=== PATIENT | female | born 1940 | race Caucasian/White ===

== ENCOUNTER → 2016-09-13 | Outpatient (CLI) | payer BC ==
[~2016-09-13] MED LIST: AMOX875T PO; ASCO100061 PO; ASPI81TA28 PO; ATEN50TA8 PO; ATOR-22 PO; CALC-20 PO; FLUT0.0529 NAE; GLUC250C PO; HYDR-5688 PO; MULT-506 PO; OMEG10007 PO
[2016-09-13 14:56] LABS: BLOOD UREA NITROGEN 16 mg/dl (7-18); BUN/CREATININE RATIO 19.7 (10-20); CALCIUM 9.2 mg/dl (8.5-10.1); CARBON DIOXIDE 27 mmol/L (21-32); CREATININE 0.79 mg/dl (0.60-1.20); GLUCOSE 87 mg/dl (70-99)
[2016-09-13 15:46] LABS: CHLORIDE 109 mmol/L (98-107); POTASSIUM 4.1 mmol/L (3.5-5.1); SODIUM 145 mmol/L (136-145)
== END | disposition home or self-care (01) ==
LOC: C.LAB1850 12:12
PROVIDERS: ATTEND Internal Medicine
DX: M81.0 Age-related osteoporosis without current pathological fracture (principal)

== ENCOUNTER 2016-09-26 06:51 | Emergency (ER) | payer BC ==
[~2016-09-26] VITALS: Ht 167.6 cm; Wt 64.8 kg
[~2016-09-26 06:51] MED LIST changes: -AMOX875T PO; -HYDR-5688 PO
[2016-09-26 06:56] VITALS: TEMP 36.8; Ht 167.6 cm; Wt 64.8 kg
[2016-09-26] MEDS ORDERED: MoRPHine SULFATE 4 MG/ML 1 ML CARP\\VIAL IV STA (08:23)
[2016-09-26] MEDS ORDERED: ONDANSETRON INJ 2 MG/ML 2 ML VIAL IV ONE (08:30)
[2016-09-26 08:46] LABS: BASO % 0.3 %; BASO ABS # 0.02 K/uL (0-0.2); COMPLETE YES; EOS % 1.4 %; IG% 0.2 %; LYMPH % 18.6 %; LYMPH ABS # 1.16 K/uL (1.2-3.4); MEAN CELL VOLUME 91.1 fL (80-100); MEAN CORPUSCULAR HEMOGLOBIN 30.9 pg (25-34); MEAN CORPUSCULAR HGB CONC 33.9 g/dl (32-36); MEAN PLATELET VOLUME 8.7 fL (7.4-10.4); MONO % 5.6 %; NEUT % 73.9 %; PLATELET COUNT 163 K/uL (130-400); WHITE BLOOD COUNT 6.22 K/uL (4.8-10.8)
[2016-09-26 08:58] LABS: CALCIUM 8.6 mg/dl (8.5-10.1)
--- NOTE | 2016-09-26 08:58 | DIAGNOSTIC IMAGING REPORT ---
TWO VIEW CHEST CLINICAL HISTORY: Flank pain and hematuria. FINDINGS: PA and lateral chest radiographs are compared to study dated 04/12/2013. The cardiomediastinal silhouette is unremarkable. Heart is mildly enlarged and there is atherosclerotic calcification of the thoracic aorta. The pulmonary vasculature is noncongested. Chronic interstitial thickening and mild nodularity are similar to previous. Scattered calcified granulomas are observed. No airspace consolidation, pleural effusion, or pneumothorax is seen. The skeletal structures are osteopenic. The bony thorax appears intact. Degenerative change and scoliosis are identified in the thoracic spine. IMPRESSION: Mild cardiac enlargement with no acute cardiopulmonary abnormality. Electronically signed by: Vitor Yoder M.D. 09/26/2016 8:56 AM Dictated Date/Time: 09/26/2016 8:55 AM
[2016-09-26 08:59] LABS: BUN/CREATININE RATIO 16.3 (10-20); CREATININE 0.86 mg/dl (0.60-1.20)
--- NOTE | 2016-09-26 09:05 | DIAGNOSTIC IMAGING REPORT ---
CT SCAN OF THE ABDOMEN AND PELVIS WITHOUT IV CONTRAST CLINICAL HISTORY: Left flank pain. COMPARISON STUDY: No priors. TECHNIQUE: CT scan of the abdomen and pelvis is performed from the lung bases to the proximal femora. Images are reviewed in the axial, sagittal, and coronal planes. IV contrast was not administered for this examination. Automated dose control exposure was utilized. CT DOSE: 261.18 mGy.cm FINDINGS: Lung bases: The heart is mildly enlarged and without pericardial effusion. There are foci of scarring versus atelectasis at the lung bases. A calcified granuloma is noted in the right lower lobe. No airspace consolidation or pleural effusion is identified. A small hiatal hernia is observed. Liver: The unenhanced liver is normal in size, contour, and attenuation. An 8 mm cyst is noted in the right lobe. There is no intrahepatic biliary ductal dilatation. Gallbladder: Unremarkable. Spleen: Normal in size and attenuation. Pancreas: The unenhanced pancreas is grossly unremarkable. Adrenal glands: Unremarkable. Kidneys: The unenhanced kidneys demonstrate mild cortical atrophy and are without hydronephrosis. There are no renal calculi identified. There is no evidence of contour deforming renal mass lesion. Abdominal vasculature: The abdominal aorta is normal in course and caliber noting mild to moderate atherosclerotic calcification. Bowel: No bowel obstruction is identified. There is advanced colonic diverticulosis. There is wall thickening and pericolonic inflammation involving the mid descending colon seen on axial image #148. The appearance is consistent with acute diverticulitis. There is no evidence of diverticular abscess. Moderate colonic fecal retention is observed. The appendix is well-visualized and normal. Peritoneum: There is no intraperitoneal free air or abdominal ascites. Lymphadenopathy: None. Pelvic viscera: The bladder is normal as visualized. A calcified uterine fibroid is observed. No adnexal lesion is seen. Skeletal structures: The skeletal structures are osteopenic. There is lumbosacral spondylosis and scoliosis. Sclerotic change is present in the sacroiliac joints and pubic symphysis. No lytic or blastic lesions are seen. IMPRESSION: Advanced colonic diverticulosis with evidence of acute diverticulitis involving the mid descending colon. No intraperitoneal free air is identified and there is no evidence of abscess. Electronically signed by: Vitor Yoder M.D. 09/26/2016 9:04 AM Dictated Date/Time: 09/26/2016 8:58 AM
[2016-09-26 09:39] LABS: URINE APPEARANCE CLEAR (CLEAR); URINE BILIRUBIN NEG (NEG); URINE COLOR YELLOW; URINE NITRITE NEG (NEG); URINE SPECIFIC GRAVITY 1.013 (1.000-1.030); UROBILINOGEN NEG (NEG)
[2016-09-26 09:56] LABS: MANUAL MICROSCOPIC REQUIRED? NO; REVIEW REQ? NO
[2016-09-26] MEDS ORDERED: AMOXICILLIN/CLAVULANATE TAB 875 MG TAB PO ONE (10:00)
[2016-09-26] MEDS ORDERED: HYDROCODONE/ACETAMOPHEN 5/325MG TAB PO STA (10:14)
[2016-09-26] MEDS ORDERED: AMOX875T PO (10:20)
[2016-09-26] MEDS ORDERED: HYDR-5688 PO (10:20)
--- NOTE | 2016-09-26 10:23 | EMERGENCY ROOM VISIT NOTE ---
History First contact with patient: 07:05 Chief Complaint: FLANK PAIN Stated Complaint: SEVERE PAIN IN LEFT SIDE ABOVE WAIST History of Present Illness The patient is a 76 year old female who presents to the Emergency Room with complaints of left-sided abdominal pain that started yesterday. Patient states the pain initially seemed to start in her left middle back and has since moved around to her abdomen. She states the pain came on gradually, she describes it as a dull ache that has gotten progressively more severe, now she is rating the pain as 7/10. Last night she took a warm bath which did not help. She has not tried any other [id number] pain medications. This is a new problem for her and she has never had any pain like this in the past. She denies any chest pain, shortness of breath, palpitations, dizziness or syncope, nausea/vomiting, diarrhea, constipation, blood in her stool, urinary symptoms, fevers/chills/ malaise. Review of Systems GENERAL: Denies fevers, chills, malaise, fatigue, unintentional weight changes. HEENT: Denies dizziness, visual problems, hearing loss, tinnitus. Denies difficulty swallowing or oral lesions. PULMONARY: Denies cough, shortness of breath, sputum production or hemoptysis. CARDIOVASCULAR: Denies chest pain, palpitations, dyspnea on exertion, orthopnea or peripheral edema. GASTROINTESTINAL: + Abdominal pain. Denies diarrhea, constipation, nausea, vomiting. GENITOURINARY: Denies dysuria, frequency, urgency or nocturia. NEUROLOGIC: Denies history of epilepsy, CVA, TIA or chronic headaches. MUSCULOSKELETAL: Denies history of joint tenderness/swelling. SKIN: Denies rashes or lesions. PSYCHIATRIC: Denies history of depression or mental illness. ENDOCRINE: Denies history of diabetes, thyroid disorders, abnormal hair growth or sexual dysfunction. Past Medical/Surgical History Medical Problems: (1) Follicular lymphoma Social History Smoking Status: Never Smoker Alcohol Use: occasionally Current/Historical Medications Scheduled Amoxicillin & Pot Clavulanate (Augmentin 875-125 mg), 1 TAB PO BID Ascorbic Acid (Ascorbic Acid), 1,000 MG PO QAM Aspirin (Aspirin Ec), 81 MG PO QAM Atenolol (Tenormin), 50 MG PO QAM Atorvastatin (Lipitor), 20 MG PO QAM Calcium Carbonate-Vitamin D (Calcium 600 + D), 1 TAB PO DAILY Fish Oil ([place]-3), 1 CAP PO QAM Glucosamine-Chondroitin (Glucosamine/Chondroitin), 1 CAP PO QAM Multivitamin (Multivitamin), 1 TAB PO QAM Scheduled PRN Hydrocodone/Acetaminophen 5MG/325MG ([place] 5MG/325MG), 1 TAB PO Q4H PRN for Pain Allergies Coded Allergies: No Known Allergies (Verified , 09/26/16) Physical Exam Vital Signs Date Time Temp Pulse Resp B/P (MAP) Pulse Ox O2 Delivery O2 Flow Rate FiO2 09/26/16 10:40 54 16 150/80 95 09/26/16 08:20 54 16 163/75 95 Room Air 09/26/16 06:56 36.8 60 18 171/97 100 Room Air Physical Exam CONSTITUTIONAL: No acute distress. Well appearing and well nourished. Alert and oriented X 4 with normal affect. HEENT: Normocephalic, atraumatic. Pupils equal, round and reactive to light, EOMI. TMs normal. Pharynx normal. Moist mucous membranes. NECK: Supple, full active range of motion without discomfort. RESPIRATORY: Clear to auscultation bilaterally with no wheezing, crackles, rhonchi or stridor. Equal expansion bilaterally. CARDIOVASCULAR: Regular rate and rhythm with no murmurs, rubs or gallops. Normal peripheral perfusion. No edema. GASTROINTESTINAL: Soft, nondistended. Moderately tender left mid and lower quadrant abdomen. No rebound, no guarding. Hyperactive bowel sounds present in all quadrants. No CVA tenderness. MUSCULOSKELETAL: Full range of motion of all joints without discomfort. INTEGUMENTARY: No rash or other significant dermatologic conditions noted. NEUROLOGIC: Cranial nerves II-XII grossly intact. No focal neurologic deficits noted. Medical Decision & Procedures ER Provider Diagnostic Interpretation: CT SCAN OF THE ABDOMEN AND PELVIS WITHOUT IV CONTRAST CLINICAL HISTORY: Left flank pain. COMPARISON STUDY: No priors. TECHNIQUE: CT scan of the abdomen and pelvis is performed from the lung bases to the proximal femora. Images are reviewed in the axial, sagittal, and coronal planes. IV contrast was not administered for this examination. Automated dose control exposure was utilized. CT DOSE: 261.18 mGy.cm FINDINGS: Lung bases: The heart is mildly enlarged and without pericardial effusion. There are foci of scarring versus atelectasis at the lung bases. A calcified granuloma is noted in the right lower lobe. No airspace consolidation or pleural effusion is identified. A small hiatal hernia is observed. Liver: The unenhanced liver is normal in size, contour, and attenuation. An 8 mm cyst is noted in the right lobe. There is no intrahepatic biliary ductal dilatation. Gallbladder: Unremarkable. Spleen: Normal in size and attenuation. Pancreas: The unenhanced pancreas is grossly unremarkable. Adrenal glands: Unremarkable. Kidneys: The unenhanced kidneys demonstrate mild cortical atrophy and are without hydronephrosis. There are no renal calculi identified. There is no evidence of contour deforming renal mass lesion. Abdominal vasculature: The abdominal aorta is normal in course and caliber noting mild to moderate atherosclerotic calcification. Bowel: No bowel obstruction is identified. There is advanced colonic diverticulosis. There is wall thickening and pericolonic inflammation involving the mid descending colon seen on axial image #148. The appearance is consistent with acute diverticulitis. There is no evidence of diverticular abscess. Moderate colonic fecal retention is observed. The appendix is well-visualized and normal. Peritoneum: There is no intraperitoneal free air or abdominal ascites. Lymphadenopathy: None. Pelvic viscera: The bladder is normal as visualized. A calcified uterine fibroid is observed. No adnexal lesion is seen. Skeletal structures: The skeletal structures are osteopenic. There is lumbosacral spondylosis and scoliosis. Sclerotic change is present in the sacroiliac joints and pubic symphysis. No lytic or blastic lesions are seen. IMPRESSION: Advanced colonic diverticulosis with evidence of acute diverticulitis involving the mid descending colon. No intraperitoneal free air is identified and there is no evidence of abscess. Laboratory Results 09/26/16 08:20 Red Blood Count 4.50, Mean Corpuscular Volume 91.1, Mean Corpuscular Hemoglobin 30.9, Mean Corpuscular Hemoglobin Concent 33.9, Mean Platelet Volume 8.7, Neutrophils (%) (Auto) 73.9, Lymphocytes (%) (Auto) 18.6, Monocytes (%) (Auto) 5.6, Eosinophils (%) (Auto) 1.4, Basophils (%) (Auto) 0.3, Neutrophils # (Auto) 4.59, Lymphocytes # (Auto) 1.16, Monocytes # (Auto) 0.35, Eosinophils # (Auto) 0.09, Basophils # (Auto) 0.02 09/26/16 08:20 Test 09/26/16 08:20 White Blood Count 6.22 K/uL (4.8-10.8) Red Blood Count 4.50 M/uL (4.2-5.4) Hemoglobin 13.9 g/dL (12.0-16.0) Hematocrit 41.0 % (37-47) Mean Corpuscular Volume 91.1 fL (80-100) Mean Corpuscular Hemoglobin 30.9 pg (25-34) Mean Corpuscular Hemoglobin Concent 33.9 g/dl (32-36) Platelet Count 163 K/uL (130-400) Mean Platelet Volume 8.7 fL (7.4-10.4) Neutrophils (%) (Auto) 73.9 % Lymphocytes (%) (Auto) 18.6 % Monocytes (%) (Auto) 5.6 % Eosinophils (%) (Auto) 1.4 % Basophils (%) (Auto) 0.3 % Neutrophils # (Auto) 4.59 K/uL (1.4-6.5) Lymphocytes # (Auto) 1.16 K/uL (1.2-3.4) Monocytes # (Auto) 0.35 K/uL (0.11-0.59) Eosinophils # (Auto) 0.09 K/uL (0-0.5) Basophils # (Auto) 0.02 K/uL (0-0.2) RDW Standard Deviation 43.3 fL (36.4-46.3) RDW Coefficient of Variation 13.0 % (11.5-14.5) Immature Granulocyte % (Auto) 0.2 % Immature Granulocyte # (Auto) 0.01 K/uL (0.00-0.02) Urine Color YELLOW Urine Appearance CLEAR (CLEAR) Urine pH 8.0 (4.5-7.5) Urine Specific [place] 1.013 (1.000-1.030) Urine Protein NEG (NEG) Urine Glucose (UA) NEG (NEG) Urine Ketones NEG (NEG) Urine Occult Blood NEG (NEG) Urine Nitrite NEG (NEG) Urine Bilirubin NEG (NEG) Urine Urobilinogen NEG (NEG) Urine Leukocyte Esterase NEG (NEG) Anion Gap 7.0 mmol/L (3-11) Est Creatinine Clear Calc Drug Dose 52.9 ml/min Estimated GFR () 76.6 Estimated GFR (Non- 66.1 BUN/Creatinine Ratio 16.3 (10-20) Calcium Level 8.6 mg/dl (8.5-10.1) Total Bilirubin 1.1 mg/dl (0.2-1) Direct Bilirubin 0.3 mg/dl (0-0.2) Aspartate Amino Transf (AST/SGOT) 17 U/L (15-37) Alanine Aminotransferase (ALT/SGPT) 25 U/L (12-78) Alkaline Phosphatase 64 U/L (45-117) Total Protein 7.1 gm/dl (6.4-8.2) Albumin 3.6 gm/dl (3.4-5.0) Lipase 151 U/L (73-393) Medical Decision CC: Patient presenting with complaint of left flank/abdominal pain. Interpretation of Labs: No leukocytosis, no anemia, no significant electrolyte abnormalities, normal renal function, normal liver enzymes and lipase. No UTI. Differential Diagnosis: Includes, but not limited to UTI, pyelonephritis, kidney stone, diverticulitis, colitis, musculoskeletal pain/strain. Summary: Patient was evaluated at bedside, history of physical exam performed. Patient is alert and oriented, in no acute distress. Very pleasant and cooperative on exam. She has moderate tenderness with palpation of the left mid and lower abdomen. No left upper quadrant tenderness on palpation. No CVA tenderness. No right- sided abdominal tenderness. She appears well-hydrated. Orders were placed at bedside for labs, urinalysis, IV fluids, pain medication, CT abdomen and pelvis to evaluate for intra-abdominal pathology. Patient discussed with Dr. Calixto, who agrees with my assessment and plan. Labs reviewed, no significant abnormalities as above. CT results reviewed, findings consistent with acute diverticulitis. No abscess formation or significant inflammatory changes. Patient's pain somewhat improved IV morphine, and she remains comfortable appearing. Patient's symptoms and CT consistent with a mild form of diverticulitis, no leukocytosis, no fevers or chills, and pain improved with oral medications. She is tolerating PO well and states she would like to be discharged home. She was provided with prescription for [place] for pain management, and Augmentin to treat her diverticulitis, first dose given in the ER prior to discharge. She was instructed to follow closely with her PCP, and given strict return precautions, she verbalized understanding. Impression Primary Impression: Acute diverticulitis Departure Information Dispostion Home / Self-Care Condition GOOD Prescriptions Hydrocodone/Acetaminophen 5MG/325MG ([place] 5MG/325MG) Tab 1 TAB PO Q4H Y for Pain for 3 Days, #18 TAB For Initial Treatment Prov: Rica Ngo CRNP 09/26/16 Amoxicillin & Pot Clavulanate (Augmentin 875-125 mg) 1 Tab Tab 1 TAB PO BID for 10 Days, #19 TAB Prov: Rica Ngo CRNP 09/26/16 Referrals Loulou Angeles M.D. (PCP) Patient Instructions ED Diverticulitis, [facility] Additional Instructions Take all medications as directed. Take the norco one tablet every 4-6 hours as needed for pain. Take a stool softener or your miralax to help prevent constipation. [place] is a narcotic, DO NOT drive or drink alcohol while taking this medication. Take the Augmentin (antibiotic) as directed for the full 10 days. Plan to follow up with your doctor in the next few days. Please return to the ER for any worsening symptoms, including severe abdominal pain, persistent vomiting, bloody diarrhea, fevers/chills/feeling ill, or any other concerns.
[2016-09-26 10:40] VITALS: BP 150/80; PULSE 54; O2SAT 95
--- NOTE | 2016-09-30 07:37 | EMERGENCY ROOM VISIT NOTE ---
ED Visit Note First contact with patient: 07:05 APC Supervision Note: I interviewed and examined the patient. Discussed with JACOB Pal and agree with findings and plan as documented in the note. Any exceptions or clarifications are listed here: [None] Pt was examined and abd shows no acute peritonitis. CT results were reviewed. She is happy with plan for outpt management. Dx: Acute diverticulitis Documented By: Zenobia Calixto
== END 2016-09-26 10:43 | disposition home or self-care (01) ==
LOC: C.EDB 06:52
DX: K57.92 Diverticulitis of intestine, part unspecified, without perforation or abscess without bleeding (principal); C82.90 Follicular lymphoma, unspecified, unspecified site; K57.30 Diverticulosis of large intestine without perforation or abscess without bleeding; Z79.82 Long term (current) use of aspirin

== ENCOUNTER → 2017-08-08 | Outpatient (CLI) | payer BC ==
[~2017-08-08] MED LIST changes: -FLUT0.0529 NAE
--- NOTE | 2017-08-11 07:46 | MAMMOGRAPHY REPORT ---
BILATERAL DIGITAL SCREENING MAMMOGRAM TOMOSYNTHESIS WITH CAD: 08/08/2017 TECHNIQUE: Breast tomosynthesis in addition to standard 2D mammography was performed. Current study was also evaluated with a Computer Aided Detection (CAD) system. COMPARISON: Comparison is made to exams dated: 08/05/2014 mammogram, 08/23/2015 mammogram, 05/19/2013 m ammogram, 05/14/2012 mammogram, 05/13/2011 mammogram, and 03/30/2010 mammogram - [facility] enter. BREAST COMPOSITION: The tissue of both breasts is heterogeneously dense, which may obscure small mas ses. FINDINGS: No suspicious masses, calcifications, or areas of architectural distortion are noted in ei ther breast. There has been no significant interval change compared to prior exams. Scattered bilater al benign-appearing calcifications are not significantly changed. Bilateral asymmetries are stable. IMPRESSION: ACR BI-RADS CATEGORY 2: BENIGN There is no mammographic evidence of malignancy. A 1 year screening mammogram is recommended. The pa tient will receive written notification of the results. Approximately 10% of breast cancers are not detected with mammography. A negative mammographic report should not delay biopsy if a clinically suggestive mass is present. Aishwarya Porter M.D. /:08/08/2017 16:06:55 Supercalender Operator Helper: Gemini LANGE(Turner)(M), [facility] letter sent: Normal 1/2 BI-RADS Code: ACR BI-RADS Category 2: Benign
== END | disposition home or self-care (01) ==
LOC: C.MAMM 11:44
PROVIDERS: ATTEND Family Medicine
DX: Z12.31 Encounter for screening mammogram for malignant neoplasm of breast (principal)

== ENCOUNTER → 2017-12-15 | Outpatient (CLI) | payer BC | END | disposition home or self-care (01) | LOC: C.RDSM 10:12 | PROVIDERS: ATTEND Physical Medicine & Rehabilitation Sports Medicine | DX: M25.561 Pain in right knee (principal); M25.562 Pain in left knee ==